=== PATIENT | male | born 2000 | race Caucasian/White ===

== ENCOUNTER 2021-12-17 23:16 | Emergency (ER) | payer BC ==
[2021-12-17] MEDS ORDERED: Lidocaine 1% (PF) 30 ML VIAL ONE (23:42)
[2021-12-18] MEDS ORDERED: Ketorolac Tromethamine 30 MG/ML VIAL ONE (00:22)
[2021-12-18] MEDS ORDERED: Boostrix 0.5 ML (Tdap) VIAL (>/=7 yrs of age) ONE (00:22)
== END 2021-12-18 00:45 | disposition home or self-care (01) ==
LOC: MADERS 23:16
DX: S01.511A Laceration without foreign body of lip, initial encounter (principal); Z23 Encounter for immunization; Y04.0XXA Assault by unarmed brawl or fight, initial encounter
CPT/HCPCS: 12011; 36416; 70450; 72125; 90471; 90715; 96374; J1885; J2001

== ENCOUNTER 2021-12-30 13:07 | Emergency (ER) | payer BC ==
[2021-12-30] MEDS ORDERED: Bacitracin 1 PK ONE (14:12)
[2021-12-30] MEDS ORDERED: Lidocaine 1%/Epinephrine 1:100K 10 ML VIAL ONE (14:12)
[2021-12-30] MEDS ORDERED: CEFAZOLIN 1 GM VIAL ONE (14:13)
[2021-12-30] MEDS ORDERED: Sterile Water 10 ML ONE (14:53)
== END 2021-12-30 15:04 | disposition home or self-care (01) ==
LOC: MADERS 13:07
DX: S82.292A Other fracture of shaft of left tibia, initial encounter for closed fracture (principal); S81.812A Laceration without foreign body, left lower leg, initial encounter; W29.3XXA Contact with powered garden and outdoor hand tools and machinery, initial encounter
CPT/HCPCS: 12002; J0690